=== PATIENT | female | born 1995 | race Caucasian/White ===

== ENCOUNTER 2017-03-01 18:08 | Emergency (ER) | payer SELFPAY ==
[~2017-03-01] VITALS: Ht 162.6 cm; Wt 87.0 kg
[2017-03-01 18:10] VITALS: BP 140/75; PULSE 122; RESP 20; TEMP 100.3; O2SAT 98
[2017-03-01] MEDS ORDERED: SODIUM CHLOR 0.9% 1000 ML INJ 700 ML IV ONE (18:31)
[2017-03-01] MEDS ORDERED: SODIUM CHLOR 0.9% 1000 ML INJ 1,000 ML IV ONE ×2 (18:31)
[2017-03-01] MEDS ORDERED: ACETAMINOPHEN 325 MG TAB PO ONE (18:45)
--- NOTE | 2017-03-01 18:59 | RADRPT ---
EXAM DATE/TIME: 03/01/2017 18:45 [place] COMPARISON: No previous studies available for comparison. EXTERNAL COMPARISON : INDICATIONS : Cough and fever for one week. MEDICAL HISTORY : None. SURGICAL HISTORY : None. ENCOUNTER: Initial ACUITY: 1 week PAIN SCORE: 0/10 LOCATION: Bilateral chest FINDINGS: The lungs are clear without infiltrate, nodule, or mass. There is no appreciable pleural effusion fo r technique. Heart and mediastinum are unremarkable. CONCLUSION: No acute cardiopulmonary disease. Feli Jennings MD on March 01, 2017 at 18:56 Board Certified Radiologist. This report was verified electronically.
[2017-03-01 19:08] LABS: BASOPHIL % 0.5 % (0.0-2.0); EOSINOPHIL % 0.1 % (0.0-4.0); HEMATOCRIT 38.8 % (35.0-46.0); HEMOGLOBIN 12.9 GM/DL (11.6-15.3); LYMPH % 33.1 % (9.0-44.0); LYMPHOCYTE # 1.7 TH/MM3 (1.0-4.8); MEAN CORPUSCULAR HEMOGLOBIN 27.9 PG (27.0-34.0); MEAN CORPUSCULAR HGB CONC 33.2 % (32.0-36.0); MEAN PLATELET VOLUME 8.5 FL (7.0-11.0); MONO % 8.3 % (0.0-8.0); MONOCYTE # 0.4 TH/MM3 (0-0.9); PLATELET COUNT 252 TH/MM3 (150-450); RED BLOOD COUNT 4.62 MIL/MM3 (4.00-5.30); RED CELL DISTRIBUTION WIDTH 13.9 % (11.6-17.2); WHITE BLOOD COUNT 5.2 TH/MM3 (4.0-11.0)
[2017-03-01 19:18] LABS: BILIRUBIN, URINE NEG (NEG); BLOOD, URINE SMALL (NEG); GLUCOSE,URINE NEG (NEG); KETONE, URINE NEG (NEG); MUCUS URINE FEW /lpf (OCC); NITRITE,URINE NEG (NEG); PH, URINE 6.5 (5.0-8.5); SQUAMOUS EPITHELIAL CELL URINE 14 /hpf (0-5); URINE COLOR YELLOW (YELLW/STRAW); URINE LEUKOCYTE ESTERASE LARGE (NEG)
[2017-03-01] MEDS ORDERED: cefTRIAXone INJ 1,000 MG in SODIUM CHLORIDE 0.9% INJ 100 ML IV ONE (19:30)
[2017-03-01 19:32] LABS: ALBUMIN 3.5 GM/DL (3.4-5.0); AST (GOT) 27 U/L (15-37); BICARBONATE 27.1 MEQ/L (21.0-32.0); BLOOD UREA NITROGEN 9 MG/DL (7-18); CALCIUM 8.4 MG/DL (8.5-10.1); CHLORIDE 98 MEQ/L (98-107); GLOMERULAR FILTRATION RATE 89 ML/MIN (>89); GLUCOSE,RANDOM 108 MG/DL (74-106); INTERNATIONAL NORMALIZED RATIO 1.1 RATIO; MAGNESIUM 1.8 MG/DL (1.5-2.5); PROTHROMBIN TIME - PATIENT 11.1 SEC (9.8-11.6); SODIUM (NA) 134 MEQ/L (136-145)
[2017-03-01 19:33] LABS: ALT (GPT) 33 U/L (10-53)
[2017-03-01 19:37] LABS: ALKALINE PHOSPHATASE 66 U/L (45-117); TOTAL BILIRUBIN ADULT 0.5 MG/DL (0.2-1.0); TOTAL PROTEIN 8.4 GM/DL (6.4-8.2)
[2017-03-01] MEDS ORDERED: POTASSIUM CHLORIDE 10 MEQ CONTROLLED RELEASE TAB PO ONE (20:00)
--- NOTE | 2017-03-01 20:02 | PD ---
HPI Chief Complaint: Dizziness Time Seen by Provider: 18:35 Travel History International Travel<30 days: No Contact w/Intl Traveler<30days: No Traveled to known affect area: No History of Present Illness HPI Patient is 21-year-old female who presents to emergency room with complaints of flulike symptoms. Patient reports that since Wednesday, she has had body aches with fever and chills. Reports that she has had a productive cough with increased congestion. Reports that her throat feels sore, reports that she has also been feeling nauseous and had episodes of vomiting at home. Reports no sick contacts at home. Reports overall decreased po intact over the past few days because "i just didn't feel like eating." Patient with no abdominal pain at this time, denies constipation/diarrhea. Reports that she did not get the influenza vaccine this year. Patient also reports dizzyness with ambulation, reports overall decreased oral intake since the onset of her symptoms. PFSH Past Medical History Medical History: Denies Significant Hx ?: Not LMP: 03/01/17 Past Surgical History Surgical History: No Previous Surgery Social History Alcohol Use: Yes ([facility]) Tobacco Use: No Substance Use: Yes ([facility] ) Allergies-Medications (Allergen,Severity, Reaction): Coded Allergies: No Known Allergies (Verified Allergy, Unknown, 03/01/17) Reported Meds & Prescriptions Reported Meds & Active Scripts Active Keflex (Cephalexin) 500 Mg Cap 500 Mg PO Q6H 7 Days Review of Systems General / Constitutional: Positive: Fever, Chills Eyes: No: Visual changes HENT: Positive: Headaches, Sore Throat, No: Neck Pain Cardiovascular: No: Chest Pain or Discomfort Respiratory: Positive: Cough, No: Shortness of Breath Gastrointestinal: Positive: Nausea, Vomiting, No: Diarrhea, Abdominal Pain, Constipation Genitourinary: No: Dysuria Musculoskeletal: No: Pain Skin: No Rash Neurologic: Positive: Dizziness, Headache, No: Weakness Psychiatric: No: Depression Endocrine: No: Polydipsia Hematologic/Lymphatic: No: Easy Bruising Physical Exam Narrative GENERAL: mild distress SKIN: Focused skin assessment warm/dry.patient with no petechiae or purpura, patient does have what appears to be bug bites to her left arm HEAD: Atraumatic. Normocephalic. EYES: Pupils equal and round. No scleral icterus. No injection or drainage. ENT: No nasal bleeding or discharge. Mucous membranes pink and moist.patient with pustules to posterior pharynx, uvula midline with no swelling, patient talking in full sentences. NECK: Trachea midline. No JVD. no meningeal signs, negative Kernig and Brudzinski sign CARDIOVASCULAR: Regular rate and rhythm. No murmur appreciated. RESPIRATORY: No accessory muscle use. Clear to auscultation. Breath sounds equal bilaterally. GASTROINTESTINAL: Abdomen soft, non-tender, nondistended. Hepatic and splenic margins not palpable. MUSCULOSKELETAL: No obvious deformities. No clubbing. No cyanosis. No edema. NEUROLOGICAL: Awake and alert. No obvious cranial nerve deficits. Motor grossly within normal limits. Normal speech. PSYCHIATRIC: Appropriate mood and affect; insight and judgment normal. Data Data Last Documented VS Vital Signs Date Time Temp Pulse Resp B/P (MAP) Pulse Ox O2 Delivery O2 Flow Rate FiO2 03/01/17 20:49 16 98 Room Air 03/01/17 20:49 86 03/01/17 18:10 100.3 Orders Orders Sepsis Workup Initiated (03/01/17 ) Electrocardiogram (03/01/17 18:31) Complete Blood Count With Diff (03/01/17 18:31) Comprehensive Metabolic Panel (03/01/17 18:31) Beta Hcg (Quant/Titer) (03/01/17 18:31) Prothrombin Time / Inr (Pt) (03/01/17 18:31) Act Partial Throm Time (Ptt) (03/01/17 18:31) Lactic Acid Sepsis Protocol (03/01/17 18:31) Magnesium (Mg) (03/01/17 18:31) Urinalysis - C+S If Indicated (03/01/17 18:31) Influenzae A/B Antigen (03/01/17 18:31) Blood Culture (03/01/17 18:31) Chest, Single Ap (03/01/17 18:31) Ecg Monitoring (03/01/17 18:31) Iv Access Insert/Monitor (03/01/17 18:31) Oximetry (03/01/17 18:31) Oxygen Administration (03/01/17 18:31) Sodium Chlor 0.9% 1000 Ml Inj (Ns 1000 M (03/01/17 18:31) Sodium Chlor 0.9% 1000 Ml Inj (Ns 1000 M (03/01/17 18:31) Sodium Chlor 0.9% 1000 Ml Inj (Ns 1000 M (03/01/17 18:31) Acetaminophen (Tylenol) (03/01/17 18:45) Ed Urine Pregnancytest Poc (03/01/17 18:43) Ceftriaxone Inj (Rocephin Inj) (03/01/17 19:30) Potassium Chloride (Kcl) (03/01/17 20:00) Labs Laboratory Tests Test 03/01/17 18:40 White Blood Count 5.2 TH/MM3 Red Blood Count 4.62 MIL/MM3 Hemoglobin 12.9 GM/DL Hematocrit 38.8 % Mean Corpuscular Volume 84.0 FL Mean Corpuscular Hemoglobin 27.9 PG Mean Corpuscular Hemoglobin Concent 33.2 % Red Cell Distribution Width 13.9 % Platelet Count 252 TH/MM3 Mean Platelet Volume 8.5 FL Neutrophils (%) (Auto) 58.0 % Lymphocytes (%) (Auto) 33.1 % Monocytes (%) (Auto) 8.3 % Eosinophils (%) (Auto) 0.1 % Basophils (%) (Auto) 0.5 % Neutrophils # (Auto) 3.0 TH/MM3 Lymphocytes # (Auto) 1.7 TH/MM3 Monocytes # (Auto) 0.4 TH/MM3 Eosinophils # (Auto) 0.0 TH/MM3 Basophils # (Auto) 0.0 TH/MM3 CBC Comment DIFF FINAL Differential Comment Prothrombin Time 11.1 SEC Prothromb Time International Ratio 1.1 RATIO Activated Partial Thromboplast Time 28.6 SEC Urine Color YELLOW Urine Turbidity HAZY Urine pH 6.5 Urine Specific [place] 1.021 Urine Protein 30 mg/dL Urine Glucose (UA) NEG mg/dL Urine Ketones NEG mg/dL Urine Occult Blood SMALL Urine Nitrite NEG Urine Bilirubin NEG Urine Urobilinogen LESS THAN 2.0 MG/DL Urine Leukocyte Esterase LARGE Urine RBC 3 /hpf Urine WBC 4 /hpf Urine Squamous Epithelial Cells 14 /hpf Urine Mucus FEW /lpf Microscopic Urinalysis Comment CATH-CULT NOT IND Blood Urea Nitrogen 9 MG/DL Creatinine 0.80 MG/DL Random Glucose 108 MG/DL Total Protein 8.4 GM/DL Albumin 3.5 GM/DL Calcium Level 8.4 MG/DL Magnesium Level 1.8 MG/DL Alkaline Phosphatase 66 U/L Aspartate Amino Transf (AST/SGOT) 27 U/L Alanine Aminotransferase (ALT/SGPT) 33 U/L Total Bilirubin 0.5 MG/DL Sodium Level 134 MEQ/L Potassium Level 3.0 MEQ/L Chloride Level 98 MEQ/L Carbon Dioxide Level 27.1 MEQ/L Anion Gap 9 MEQ/L Estimat Glomerular Filtration Rate 89 ML/MIN Lactic Acid Level 1.4 mmol/L Human Chorionic Gonadotropin, Quant LESS THAN 1 MIU/ML MDM Medical Decision Making Medical Screen Exam Complete: Yes Emergency Medical Condition: Yes Medical Record Reviewed: Yes Interpretation(s) EKG at 1854: Sinus tachycardia at 108bpm, qt/qtc: 310/373, no acute st or t wave changes Vital Signs Date Time Temp Pulse Resp B/P (MAP) Pulse Ox O2 Delivery O2 Flow Rate FiO2 03/01/17 18:48 97 Room Air 03/01/17 18:48 112 20 97 Room Air 03/01/17 18:10 100.3 122 20 140/75 (96) 98 Room Air Differential Diagnosis Influenza, pneumonia, meningitis though unlikely, viral syndrome, dehydration, electrolyte abnormality, strep pharyngitis Narrative Course 21-year-old female who presents to emergency room with complaints of flu like symptoms. Patient reports onset of symptoms on Wednesday. Patient with myalgias , fever, chills, cough, congestion, sore throat, body aches with nausea and vomiting. patient was tachycardic with a temperature of 100.3, sepsis protocol was initiated During the course of the patients emergency department visit, the patients history, examination, and differential diagnosis were reviewed with the patient. The patient was placed on a hospital monitor with oximetry and frequent blood pressure monitoring. The patient had an IV access obtained and blood work sent for analysis. The patient was initially provided 3 Liter of IVF The patients laboratory studies were reviewed and remarkable for: CBC & BMP Diagram 03/01/17 18:40 Total Protein 8.4 H, Albumin 3.5, Calcium Level 8.4 L, Magnesium Level 1.8, Alkaline Phosphatase 66, Aspartate Amino Transf (AST/SGOT) 27, Alanine Aminotransferase (ALT/SGPT) 33, Total Bilirubin 0.5 cbc: wnl bmp: sodium 134, potassium 3.0, bun 9, cr 0.8 LACTIC ACID 1.4 mag 1.8 ast 27, alt 33 alk phos 66 hcg quant less than 1 UA: positive for large leuk esterase, 30 protein Radiology studies were reviewed and remarkable for: Last Impressions Chest X-Ray 03/01/17 1831 Signed Impressions: Service Date/Time: Wednesday, March 01, 2017 18:45 - CONCLUSION: No acute cardiopulmonary disease. Feli Jennings MD Patient reevaluated, patient reports that she is feeling much better at this time. I reviewed all labs and studies with patient in detail. Patient most likely with viral syndrome with uti. She has been pancultured. She was given a dose of rocephin for treatment of UTI. She will be given a script for antibiotics for uti. Signs and symptoms of when to return to the ER was reviewed with patient in detail. Patient appreciative of care Diagnosis Primary Impression: Viral syndrome Additional Impressions: UTI (urinary tract infection) Qualified Codes: N30.01 - Acute cystitis with hematuria Hypokalemia Nausea & vomiting Qualified Codes: R11.2 - Nausea with vomiting, unspecified Patient Instructions: General Instructions Additional Instructions: Please provide patient with a copy of their lab work and studies at discharge* * Please follow up with your primary care doctor in 2-3 days Return to the ER if symptoms worsen or progress Return to the ER as needed Please follow up with all cultures from today Please take all medications as prescribed Med/Other Pt SpecificInfo: Prescription(s) given Scripts Cephalexin (Keflex) 500 Mg Cap 500 MG PO Q6H for Infection for 7 Days, #28 CAP 0 Refills Prov: Sheri Loya DO 03/01/17 Disposition: 01 DISCHARGE HOME Condition: Stable Sheri Loya DO Mar 01, 2017 20:02
[2017-03-01] MEDS ORDERED: CEPH-460 PO (20:45)
[2017-03-01 20:49] VITALS: BP 117/59; PULSE 86; RESP 16; O2SAT 98
--- NOTE | 2017-03-02 16:42 | EKG ---
Date Performed: 03/01/2017 Time Performed: 18:54:22 PTAGE: 21 years EKG: SINUS TACHYCARDIA VOLTAGE CRITERIA FOR LVH ABNORMAL ECG NO PREVIOUS TRACING DOCTOR: Mariluz Sierra Interpretating Date/Time 03/02/2017 16:41:44
== END 2017-03-01 21:39 | disposition home or self-care (01) ==
LOC: NEPD 18:08
DX: B34.9 Viral infection, unspecified (principal); N39.0 Urinary tract infection, site not specified; E87.6 Hypokalemia; R11.2 Nausea with vomiting, unspecified; R00.0 Tachycardia, unspecified; R94.31 Abnormal electrocardiogram [ECG] [EKG]
CPT/HCPCS: 71045; 80053; 81001; 83605; 83735; 84702; 84703; 85025; 85610; 85730; 87040; 87804; 93005; 96361; 96365; 99285; J0696; J7030

== ENCOUNTER 2017-06-13 02:55 | Emergency (ER) | payer SELFPAY ==
[~2017-06-13] VITALS: Ht 162.6 cm; Wt 88.0 kg
[~2017-06-13 02:55] MED LIST: CEPH-460 PO
[2017-06-13 03:17] VITALS: BP 150/98; PULSE 102; RESP 18; TEMP 98.8; O2SAT 100
--- NOTE | 2017-06-13 05:03 | PD ---
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 Symptoms began about 2 days ago. Patient states she does participate in unprotected intercourse with multiple partners. States that 1 of her partners just identified a sore on his penis and made her aware of it. She is concerned she may have caught what he has. Denies any abdominal pain. No fever chills. No other symptoms to report. PFSH Past Medical History Medical History: Denies Significant Hx Diminished Hearing: No Inguinal Hernia: Yes (abd hernia hx/repair) Tetanus Vaccination: < 5 Years Influenza Vaccination: No ?: Not LMP: 06/08/2017 Past Surgical History Abdominal Surgery: Yes (abd hernia repair) Social History Alcohol Use: Yes ([facility]) Tobacco Use: No Substance Use: Yes ([facility] ) Allergies-Medications (Allergen,Severity, Reaction): Coded Allergies: No Known Allergies (Verified Allergy, Unknown, 06/13/17) Reported Meds & Prescriptions Reported Meds & Active Scripts Active Keflex (Cephalexin) 500 Mg Cap 500 Mg PO Q12H 7 Days Keflex (Cephalexin) 500 Mg Cap 500 Mg PO Q6H 7 Days Review of Systems Except as stated in HPI: all other systems reviewed are Neg Physical Exam Narrative GENERAL: Well-nourished, well-developed female patient in no acute distress SKIN: Focused skin assessment warm/dry. HEAD: Normocephalic. EYES: No scleral icterus. No injection or drainage. NECK: Supple, trachea midline. No JVD or lymphadenopathy. CARDIOVASCULAR: Regular rate and rhythm without murmurs, gallops, or rubs. RESPIRATORY: Breath sounds equal bilaterally. No accessory muscle use. GASTROINTESTINAL: Abdomen soft, non-tender, nondistended. No guarding. No rebound tenderness GENITOURINARY: Normal external genitalia. There are 2 vesicular lesions on the left labia minora with slight erythema surrounding them. They are 2 mm in diameter e. Vaginal vault without blood. There is a yellow white thick discharge in the vaginal vault. Cervix is friable. There is an abnormal appearing lesion at 12:00 on the cervix that is approximately 0.5 cm in diameter , reddened, and raised. No cervical motion tenderness. Uterus nontender and nonenlarged. Bilateral adnexa nontender without masses. MUSCULOSKELETAL: No cyanosis, or edema. BACK: Nontender without obvious deformity. No CVA tenderness. Data Data Last Documented VS Vital Signs Date Time Temp Pulse Resp B/P (MAP) Pulse Ox O2 Delivery O2 Flow Rate FiO2 06/13/17 03:17 98.8 102 18 150/98 (115) 100 Orders Orders Herpes Simplex Virus Culture (06/13/17 04:54) Gc And Chlamydia Pcr (06/13/17 04:54) Wet Prep Profile (06/13/17 04:54) Urinalysis - C+S If Indicated (06/13/17 04:54) Ed Urine Pregnancytest Poc (06/13/17 04:54) Ceftriaxone Inj (Rocephin Inj) (06/13/17 05:15) Lidocaine 1% Inj (50 Ml) (Xylocaine 1% I (06/13/17 05:15) Azithromycin Powd Pack (Zithromax Powd P (06/13/17 05:15) Urine Culture (06/13/17 05:20) Ed Discharge Order (06/13/17 06:06) Labs Laboratory Tests Test 06/13/17 05:20 Urine Color YELLOW Urine Turbidity HAZY Urine pH 6.0 Urine Specific [place] 1.014 Urine Protein TRACE mg/dL Urine Glucose (UA) NEG mg/dL Urine Ketones NEG mg/dL Urine Occult Blood MOD Urine Nitrite NEG Urine Bilirubin NEG Urine Urobilinogen LESS THAN 2.0 MG/DL Urine Leukocyte Esterase LARGE Urine RBC 34 /hpf Urine WBC /hpf Urine Squamous Epithelial Cells 7 /hpf Urine Bacteria RARE /hpf Urine Mucus FEW /lpf Microscopic Urinalysis Comment CULTURE INDICATED Clue Cells (Wet Prep) NONE SEEN Vaginal Trichomonas (Wet Prep) NONE SEEN Vaginal Yeast (Wet Prep) NONE SEEN MDM Medical Decision Making Medical Screen Exam Complete: Yes Emergency Medical Condition: Yes Medical Record Reviewed: Yes Differential Diagnosis UTI versus STD versus PID versus folliculitis Narrative Course 21-year-old female presents emergency department for evaluation. Patient does have 2 vesicular appearing lesions, however these are not clustered her typical appearance of herpes. Culture has been obtained. Patient does have a thick yellow white vaginal discharge. She is treated empirically with azithromycin and Rocephin. Urinalysis has innumerable WBCs. Patient be started on Keflex. Wet prep is negative. Patient is counseled on safe sex practice. She is encouraged to follow-up with primary care provider and return immediately with any acute worsening symptoms. Diagnosis Primary Impression: UTI (urinary tract infection) Qualified Codes: N30.01 - Acute cystitis with hematuria Additional Impressions: Vaginal discharge Possible exposure to STD Referrals: Knockdown Worker Primary Care Physician [facility]. Patient Instructions: General Instructions, Safe Sex (ED) Additional Instructions: Utilize condom prophylaxis Follow-up the primary care provider Follow-up with the [facility] department for a full array of STD testing Return immediately with any acute worsening symptoms Med/Other Pt SpecificInfo: Prescription(s) given Scripts Cephalexin (Keflex) 500 Mg Cap 500 MG PO Q12H for Infection for 7 Days, #14 CAP 0 Refills Prov: Roseline Charles 06/13/17 Disposition: 01 DISCHARGE HOME Condition: Stable Roseline Charles Jun 13, 2017 05:03
[2017-06-13] MEDS ORDERED: cefTRIAXone 250 MG VIAL IM ONE (05:15)
[2017-06-13] MEDS ORDERED: LIDOCAINE HCL 1% 50 ML VIAL XX ONE (05:15)
[2017-06-13] MEDS ORDERED: AZITHROMYCIN PWD FOR SUSP 1 GM PACKET PO ONE (05:15)
[2017-06-13 05:51] LABS: BACTERIA, URINE RARE /hpf; BILIRUBIN, URINE NEG (NEG); BLOOD, URINE MOD (NEG); GLUCOSE,URINE NEG (NEG); KETONE, URINE NEG (NEG); MUCUS URINE FEW /lpf (OCC); NITRITE,URINE NEG (NEG); SQUAMOUS EPITHELIAL CELL URINE 7 /hpf (0-5); URINE COLOR YELLOW (YELLW/STRAW); URINE LEUKOCYTE ESTERASE LARGE (NEG)
[2017-06-13] MEDS ORDERED: CEPH-460 PO (06:08)
== END 2017-06-13 06:17 | disposition home or self-care (01) ==
LOC: NEPC 02:55
DX: N39.0 Urinary tract infection, site not specified (principal); N89.8 Other specified noninflammatory disorders of vagina
CPT/HCPCS: 81001; 84703; 87086; 87210; 87255; 87491; 87591; 96372; 99283; J0696